=== PATIENT | female | born 1990 | race Caucasian/White ===

== ENCOUNTER → 2016-12-31 | Outpatient (CLI) | payer BC ==
[2016-07-25 23:46] VITALS: BP 90/41
[~2016-12-31] MED LIST: CEFU500T PO; DOXY100T PO
--- NOTE | 2016-12-31 12:16 | RAD ---
CT scan of the abdomen and pelvis without contrast 12/31/2016 Clinical history: Hematuria with flank pain, left greater than right. Technique: Unenhanced, contiguous, 3 mm axial sections were obtained through the abdomen and pelvis. One or more of the following individualized dose reduction techniques were utilized for this study: 1. Automated exposure control. 2. Adjustment of the mA and/or kV according to patient size. 3. Use of iterative reconstruction technique. Findings: Comparison study is dated 04/05/2014. Images through the lung bases are within normal limits. The liver, spleen, pancreas and adrenal glands are within normal limits. No renal or ureteral calculus is seen. There is no evidence of obstruction of either collecting system. The abdominal aorta tapers normally. The gallbladder is slightly contracted. No free fluid or free air is seen within the abdomen. There is no evidence of bowel obstruction. The appendix is well visualized and is within normal limits. Images through the pelvis demonstrate the urinary bladder distended with urine. Calcifications are seen within the pelvis consistent with phleboliths. A small amount of free fluid is seen within the pelvis. No adnexal mass is seen. The osseous structures are grossly intact. Impression: 1. No renal or ureteral calculus is seen. There is no evidence of obstruction of either collecting system. 2. Small amount of free fluid is seen within the pelvis.
== END | disposition home or self-care (01) ==
LOC: CT 11:21
PROVIDERS: ATTEND Physician Assistant
DX: M54.89 Other dorsalgia (principal); R10.84 Generalized abdominal pain; R31.29 Other microscopic hematuria
CPT/HCPCS: 74176

== ENCOUNTER → 2020-02-03 | Outpatient (CLI) | payer OTHER ==
[2016-07-25 23:46] VITALS: BP 90/41
--- NOTE | 2020-02-03 10:33 | RAD ---
HIP RIGHT 2V WITH PELVIS DATE: 02/03/2020 12:00 AM INDICATION: Right hip pain COMPARISON: None. FINDINGS: Bones: There is no evidence of acute fracture or dislocation. Joints: The joint spaces are normal. Miscellaneous: Pelvic phleboliths. IMPRESSION: No acute osseous abnormality. Electronically signed by: Anibal Taveras MD (02/03/2020 10:29 AM) [id number]
== END | disposition home or self-care (01) ==
LOC: RAD 09:48
PROVIDERS: ATTEND Physician Assistant
DX: I87.8 Other specified disorders of veins (principal); M25.551 Pain in right hip
CPT/HCPCS: 73502

== ENCOUNTER → 2020-04-21 | Outpatient (CLI) | payer OTHER ==
[2016-07-25 23:46] VITALS: BP 90/41
--- NOTE | 2020-04-21 13:27 | RAD ---
Nuclear medicine whole body bone scan History: Stress fracture of right pubic ramus. Comparison: MR right hip arthrogram, without contrast March 03, 2020. AP pelvis and right hip, , 2019. Technique: Examination performed after intravenous administration of 25 mCi Technetium 99m MDP. Images of the whole body were obtained in the anterior and posterior projections. Additional oblique static images of the pelvis obtained. Findings: There is increased tracer uptake localizing to the right superior pubic ramus. Tracer uptake in pelvic bones is otherwise symmetric. Tracer uptake in the spine is homogeneous. Tracer uptake in ribs is symmetric. Tracer uptake in the extremities is symmetric. Tracer distribution in the soft tissues appears normal. Impression: 1. There is increased tracer uptake of the right superior pubic ramus. In correlation with prior studies etiology may be stress injury/reaction versus stress fracture. 2. Bone scan is otherwise negative. Electronically signed by: Nathan Gomez MD (04/21/2020 1:24 PM) [id number]
== END | disposition home or self-care (01) ==
LOC: NM 08:21
PROVIDERS: ATTEND Physician Assistant
DX: M84.350A Stress fracture, pelvis, initial encounter for fracture (principal)
CPT/HCPCS: 78306; A9503